=== PATIENT | male | born 1960 | race Caucasian/White ===

== ENCOUNTER 2023-09-08 07:18 | Day surgery (SDC) | payer OTHER ==
[~2023-09-08] VITALS: Ht 185.4 cm; Wt 107.4 kg
[~2023-09-08 07:18] MED LIST: AMLO1TAB24 PO; ATOR40TA75 PO; BAYE81TA7 PO; CETI-24 PO; CHLO125TA PO; LISI40TA4 PO; MELO7.5T35 PO; METF-839 PO; METO1TAB33 PO; OMEP40CA5 PO; SPIR-10 PO
[2023-09-08] MEDS: NS 1,000 ML IV ONE (08:09)
[2023-09-08] MEDS ORDERED: propofoL 200 MG/20 ML VIAL As Ordered ONE (09:30)
[2023-09-08 09:37] VITALS: TEMP 98.8
[2023-09-08 09:53] VITALS: BP 134/65; O2SAT 95
== END 2023-09-08 10:01 | disposition home or self-care (01) ==
LOC: M OPP 07:18
PROVIDERS: ATTEND Surgery
DX: K57.30 Diverticulosis of large intestine without perforation or abscess without bleeding (principal); R19.5 Other fecal abnormalities; E11.9 Type 2 diabetes mellitus without complications; I10 Essential (primary) hypertension; F17.200 Nicotine dependence, unspecified, uncomplicated; Z79.02 Long term (current) use of antithrombotics/antiplatelets; Z79.1 Long term (current) use of non-steroidal anti-inflammatories (NSAID); Z79.82 Long term (current) use of aspirin; Z79.84 Long term (current) use of oral hypoglycemic drugs; Z79.899 Other long term (current) drug therapy